=== PATIENT | male | born 1970 | race Caucasian/White ===

== ENCOUNTER 2019-04-19 16:34 | Emergency (ER) | payer BC ==
[~2019-04-19] VITALS: Ht 172.7 cm; Wt 72.6 kg
[2019-04-19 16:46] VITALS: BP 167/83
--- NOTE | 2019-04-19 17:28 | PHYS DOC ---
Past History Past Medical History: Diabetes, Hypertension Past Surgical History: No Surgical History Alcohol Use: None Drug Use: None Adult General Chief Complaint Chief Complaint: LACERATION/AVULSION HPI HPI Patient is a 49-year-old male presents with incisions to his left thumb, index finger, and long finger. He was cutting a plastic bottle with a box spinner when the box spinner slipped. He is right hand dominant. No numbness or tingling. Patient is uncertain as to when his last tetanus vaccine was but is requesting only tetanus vaccine, and not any of the diphtheria or pertussis. No numbness or tingling. Bleeding was controlled with pressure.[] Review of Systems Review of Systems Constitutional: Denies fever or chills [] Eyes: Denies change in visual acuity, redness, or eye pain [] HENT: Denies nasal congestion or sore throat [] Respiratory: Denies cough or shortness of breath [] Cardiovascular: No chest pain or palpitations[] GI: Denies abdominal pain, nausea, vomiting, bloody stools or diarrhea [] : Denies dysuria or hematuria [] Musculoskeletal: Denies back pain or joint pain [] Integument: Denies rash, see history of present illness[] Neurologic: Denies headache, focal weakness or sensory changes [] Endocrine: Denies polyuria or polydipsia [] All other systems were reviewed and found to be within normal limits, except as documented in this note. Allergies Allergies Allergies Coded Allergies Type Severity Reaction Last Updated Verified No Known Drug Allergies 04/19/19 No Physical Exam Physical Exam Constitutional: Well developed, well nourished, no acute distress, non-toxic appearance. [] HENT: Normocephalic, atraumatic, bilateral external ears normal, oropharynx moist, no oral exudates, nose normal. [] Eyes: PERRLA, EOMI, conjunctiva normal, no discharge. [] Neck: Normal range of motion, no tenderness, supple, no stridor. [] Cardiovascular:Heart rate regular rhythm, no murmur [] Lungs & Thorax: Bilateral breath sounds clear to auscultation [] Abdomen: Not examined. [] Skin: Warm, dry, no erythema, no rash. [] Back: No tenderness, no CVA tenderness. [] Extremities: Left thumb has a partial-thickness laceration on the palmar aspect, flap it up. There is no bleeding. Flexor and extensor mechanisms are intact. Patient is distally neurovascularly intact. Index finger has a curved laceration it the PIP joint. There is no evidence of joint involvement. FDS, FDP, and extensor mechanisms are intact. Capillary refills less than 2 seconds. 2point discrimination is less than 5 mm. Long finger has a 1 cm laceration on the radial aspect of the proximal phalanx. No bleeding. No significant gapping. FDS, FDP, and extensor mechanisms are intact. 2 point discrimination is less than 5 mm. The other 3 extremities show: No tenderness, no cyanosis, no clubbing, ROM intact, no edema. [] Neurologic: Alert and oriented X 3, normal motor function, normal sensory function, no focal deficits noted. [] Psychologic: Affect normal, judgement normal, mood normal. [] Current Patient Data Vital Signs Vital Signs Date Time Temp Pulse Resp B/P (MAP) Pulse Ox O2 Delivery O2 Flow Rate FiO2 04/19/19 16:46 98.7 98 18 98 Room Air EKG EKG [] Radiology/Procedures Radiology/Procedures [] Course & Med Decision Making Course & Med Decision Making Pertinent Labs and Imaging studies reviewed. (See chart for details) ED course: Patient arrived, was placed in bed, and tolerated exam well. Patient had the wound cleaned and examined for through a full range of motion. He were repaired as noted in the laceration repair section. Patient was given a Td update. He was discharged in improved condition with all questions answered. Medical decision making: Patient with laceration to multiple fingers. There is no evidence of ligamentous or tendinous injury. No evidence of joint violation. This appears to be a clean wound. Tetanus status is being updated. No evidence of neurologic or vascular compromise.[] Dragon Disclaimer Dragon Disclaimer This electronic medical record was generated, in whole or in part, using a voice recognition dictation system. Departure Departure: Impression: Primary Impression: Laceration of multiple sites of hand and fingers Disposition: 01 HOME, SELF-CARE Condition: IMPROVED Referrals: CAMILA SAMUEL MD (PCP) Follow-up in 2 days Patient Instructions: Sterile Tape Wound Closure, Tetanus and Diphtheria Vaccine Additional Instructions: Follow-up with your regular doctor in 2 days for a wound check. Return to the ER if worsening pain, weakness, purulent drainage, or any other concerns. Keep the wounds clean and dry. Wear the splint on your index finger for the next 2 weeks. Laceration Repair Lac Repair Indication: Laceration of fingers of left hand[] Procedure: The patient was placed in the appropriate position and the area was then cleansed. The laceration was closed with Steri-Strips and Mastisol. The laceration on the index finger was additionally splinted and had skin glue applied. The wound area was then dressed with sterile dressing Total repaired wound length: Thumb has a flap 1 cm long total. Index finger has a curved laceration 1.5 cm. The long finger has a 1 cm laceration. Other Items: None The patient tolerated the procedure well. Hemostasis was achieved. Complications: None Problem Qualifiers Primary Impression: Laceration of multiple sites of hand and fingers Encounter type: initial encounter Laterality: left Qualified Codes: S61.412A - Laceration without foreign body of left hand, initial encounter; S61.219A - Laceration without foreign body of unspecified finger without damage to nail, initial encounter NAV HA DO Apr 19, 2019 17:28
[2019-04-19] MEDS ORDERED: TETANUS AND DIPHTHERIA TOX/PF 0.5 ML VIAL. VAX IM ONE (17:30)
== END 2019-04-19 18:06 | disposition home or self-care (01) ==
LOC: ER 16:34
DX: S61.211A Laceration without foreign body of left index finger without damage to nail, initial encounter (principal); S61.213A Laceration without foreign body of left middle finger without damage to nail, initial encounter; S61.012A Laceration without foreign body of left thumb without damage to nail, initial encounter; E11.9 Type 2 diabetes mellitus without complications; I10 Essential (primary) hypertension; W27.8XXA Contact with other nonpowered hand tool, initial encounter; Y93.89 Activity, other specified; Y92.89 Other specified places as the place of occurrence of the external cause; Y99.8 Other external cause status
CPT/HCPCS: 12001; 90471; 90714; 99283-25